=== PATIENT | female | born 1985 | race Caucasian/White ===

== ENCOUNTER 2018-02-24 18:46 | Emergency (ER) | payer OTHER ==
[~2018-02-24] VITALS: Ht 165.1 cm; Wt 43.1 kg
[~2018-02-24 18:46] MED LIST: DICY20TA28 PO; Diphenhydramine Hcl PO; Gabapentin PO; HYDR-3895 PO; METH-33 PO; SPIR50TA5 PO
--- NOTE | 2018-02-24 19:50 | NUR ---
DR VALERIE ARAUJO MD AT BEDSIDE FOR MSE.
[2018-02-24] MEDS ORDERED: HYDROCODONE/APAP 5-325MG TABLET ONE (20:13)
[2018-02-24] MEDS ORDERED: HYDROCODONE/APAP 5-325MG TABLET PO ONE (20:15)
--- NOTE | 2018-02-24 20:22 | NUR ---
Patient discharged to home in stable conditon. Written and verbal after care instructions given. Patient verbalizes understanding of instructions. Pt ambulated from ER w/ steady gait. Denies knee pain at this time, stating she "feels much better". no distress noted. Pt took all personal belongings.
[2018-02-24 20:34] VITALS: BP 122/64
== END 2018-02-24 20:35 | disposition home or self-care (01) ==
LOC: ER 18:47
DX: G89.29 Other chronic pain (principal); M25.561 Pain in right knee; M54.2 Cervicalgia; M79.602 Pain in left arm; F17.200 Nicotine dependence, unspecified, uncomplicated
CPT/HCPCS: A4663